=== PATIENT | male | born 1995 | race Caucasian/White ===

== ENCOUNTER 2024-08-10 22:54 | Emergency (ER) | payer SELFPAY | END 2024-08-10 23:58 | disposition home or self-care (01) | LOC: KA.ED 22:54 | DX: S39.012A Strain of muscle, fascia and tendon of lower back, initial encounter (principal); X50.1XXA Overexertion from prolonged static or awkward postures, initial encounter; Y93.89 Activity, other specified; Y99.0 Civilian activity done for income or pay | CPT/HCPCS: 99283 ==